=== PATIENT | female | born 1985 | race Caucasian/White ===

== ENCOUNTER 2017-01-07 05:47 | Inpatient (IN) | payer OTHER ==
[~2017-01-07] VITALS: Ht 162.6 cm; Wt 102.1 kg
[2017-01-07] MEDS ORDERED: LACTATED RINGERS 1,000 ML IV SCH (07:36)
[2017-01-07] MEDS ORDERED: BRETHINE2.5 MG PO (07:39)
[2017-01-07] MEDS ORDERED: PRENATAL LOW IR1 TA1 PO (07:39)
[2017-01-07] MEDS ORDERED: CITRIC ACID/SODIUM CITRATE 30 ML UDC PO SCH (07:40)
[2017-01-07 07:55] VITALS: BP 115/57
--- NOTE | 2017-01-07 08:29 | NUR ---
PATIENT HAS BEEN SCREENED AND CATEGORIZED LOW NUTRITION RISK. PATIENT WILL BE SEEN WITHIN 7 DAYS OF ADMISSION. 01/13/[address]
[2017-01-07] MEDS ORDERED: OXYTOCIN 10 UNITS/ML VIAL ONE ×2 (10:17→11:11)
[2017-01-07] MEDS ORDERED: MORPHINE PRES FREE 10 MG/10 ML AMP IV ONE (11:04)
[2017-01-07] MEDS ORDERED: ONDANSETRON 4 MG/2 ML VIAL ONE (11:11)
[2017-01-07] MEDS ORDERED: KETOROLAC 30 MG/ML VIAL ONE (11:11)
[2017-01-07] MEDS ORDERED: BUPIVACAINE-MPF 0.75% 10 ML VIAL INJ ONE (11:11)
[2017-01-07] MEDS ORDERED: PROPOFOL 200 MG/20 ML VIAL IV ONE (11:11)
[2017-01-07] MEDS ORDERED: OXYTOCIN 20 UNITS/LR PREMIX 1,000 ML IV SCH (11:35)
[2017-01-07] MEDS ORDERED: ONDANSETRON 4 MG/2 ML VIAL IVP PRN (11:35)
[2017-01-07] MEDS ORDERED: KETOROLAC 30 MG/ML VIAL IVP PRN ×2 (11:35→14:15)
[2017-01-07] MEDS ORDERED: NALOXONE 0.4 MG/ML VIAL IVP PRN ×2 (11:35)
[2017-01-07] MEDS ORDERED: diphenhydrAMINE 50 MG/ML VIAL IVP PRN (11:35)
[2017-01-07] MEDS ORDERED: diphenhydrAMINE 50 MG/ML VIAL ONE (13:49)
[2017-01-07] MEDS ORDERED: OXYTOCIN 20 UNITS/LR PREMIX 1,000 ML IV ONE (13:59)
[2017-01-07] MEDS ORDERED: MEASLES, MUMPS, AND RUBELLA 1 VIAL SQVAC PRN (14:15)
[2017-01-07] MEDS: OXYTOCIN 20 UNITS/LR PREMIX 1,000 ML IV SCH (19:37)
[2017-01-07] MEDS ORDERED: INFLUENZA VIRUS VACCINE QUAD 0.5 ML SYR IMVAC SCH (22:00)
[2017-01-08] MEDS: OXYTOCIN 20 UNITS/LR PREMIX 1,000 ML IV SCH (03:02)
[2017-01-08] MEDS ORDERED: HYDROmorphone 1 MG/ML AMP IVP PRN (06:00)
[2017-01-09] MEDS: IBUPROFEN 600 MG TAB PO PRN (03:13)
[2017-01-09] MEDS ORDERED: SODIUM PHOSPHATE 118 ML ENEM RC PRN (08:00)
[2017-01-09] MEDS: BISACODYL 5 MG TABEC PO PRN (08:25)
[2017-01-09] MEDS: DOCUSATE SODIUM 100 MG GELCAP PO PRN (08:25)
[2017-01-09] MEDS: oxyCODONE/APAP 5/325 MG 1 TAB TAB PO PRN (21:30)
[2017-01-10] MEDS: BISACODYL 5 MG TABEC PO PRN (20:53)
[2017-01-10] MEDS: DOCUSATE SODIUM 100 MG GELCAP PO PRN (20:53)
[2017-01-10] MEDS: oxyCODONE/APAP 5/325 MG 1 TAB TAB PO PRN (20:54)
[2017-01-10] MEDS ORDERED: diphenhydrAMINE 50 MG CAP PO SCH (21:05)
[2017-01-11] MEDS: IBUPROFEN 600 MG TAB PO PRN (04:05)
[2017-01-11] MEDS: oxyCODONE/APAP 5/325 MG 1 TAB TAB PO PRN (06:37)
[2017-01-11] MEDS ORDERED: MOTRIN400 MG PO ×2 (14:08→14:10)
[2017-01-11] MEDS ORDERED: FERROUS SULFAT325 MG PO (14:09)
== END 2017-01-11 15:45 | disposition home or self-care (01) | DRG 540 ==
LOC: MLD 07:03 → MFCC 10:50
PROVIDERS: ADMIT Obstetrics & Gynecology; ATTEND Obstetrics & Gynecology
PROC: 10D00Z1 Extraction of Products of Conception, Low, Open Approach (ICD-10-PCS; principal; 2017-01-10)
PROC: 0KNL0ZZ Release Left Abdomen Muscle, Open Approach (ICD-10-PCS; 2017-01-10)
PROC: 0KNK0ZZ Release Right Abdomen Muscle, Open Approach (ICD-10-PCS; 2017-01-10)
PROC: 0DNS0ZZ (ICD-10-PCS; 2017-01-10)
DX: O34.211 Maternal care for low transverse scar from previous cesarean delivery (principal); E66.01 Morbid (severe) obesity due to excess calories; O99.214 Obesity complicating childbirth; O99.89 Other specified diseases and conditions complicating pregnancy, childbirth and the puerperium; N73.6 Female pelvic peritoneal adhesions (postinfective); O24.425 Gestational diabetes mellitus in childbirth, controlled by oral hypoglycemic drugs; O99.72 Diseases of the skin and subcutaneous tissue complicating childbirth; B95.8 Unspecified staphylococcus as the cause of diseases classified elsewhere; L08.9 Local infection of the skin and subcutaneous tissue, unspecified; Z83.3 Family history of diabetes mellitus; Z3A.38 38 weeks gestation of pregnancy; Z68.38 Body mass index [BMI] 38.0-38.9, adult; Z37.0 Single live birth; Z28.21 Immunization not carried out because of patient refusal

== ENCOUNTER 2020-06-16 09:48 | Observation (INO) | payer OTHER, SELFPAY ==
[~2020-06-16] VITALS: Ht 157.5 cm; Wt 99.8 kg
[~2020-06-16 09:48] MED LIST: FERR325E14 PO; IBUP-1842 PO; PREN-380 PO
[2020-06-16 10:31] VITALS: BP 112/55
== END 2020-06-16 18:10 | disposition home or self-care (01) ==
LOC: MFCC 09:48
PROVIDERS: ADMIT Obstetrics & Gynecology; ATTEND Obstetrics & Gynecology
DX: Z03.818 Encounter for observation for suspected exposure to other biological agents ruled out (principal); O62.9 Abnormality of forces of labor, unspecified; O09.523 Supervision of elderly multigravida, third trimester; Z3A.34 34 weeks gestation of pregnancy
CPT/HCPCS: 76815; 81000; G0378; Q0092; U0003; 59025

== ENCOUNTER 2020-07-13 07:56 | Inpatient (IN) | payer OTHER, SELFPAY ==
[~2020-07-13] VITALS: Ht 154.9 cm; Wt 102.1 kg
[2020-07-13] MEDS: LACTATED RINGERS 1,000 ML IV SCH (06:18)
[~2020-07-13 07:56] MED LIST changes: +PREN-546 PO
[2020-07-13] MEDS ORDERED: TERBUTALINE 1 MG/ML VIAL SUBQ SCH (08:35)
[2020-07-13 08:37] VITALS: BP 122/66
[2020-07-13] MEDS ORDERED: TERBUTALINE 1 MG/ML VIAL SUBQ ONE ×2 (08:45→10:15)
[2020-07-13] MEDS ORDERED: LACTATED RINGERS 1,000 ML IV SCH (13:36)
[2020-07-13] MEDS ORDERED: TERBUTALINE 2.5 MG TAB ONE (14:09)
[2020-07-13 14:15] LABS: BASOPHILS # (AUTO) 0.1 K/uL (0.00-0.22); EOSINOPHILS % (AUTO) 0.1 % (0.0-4.0); HEMATOCRIT 36.2 % (36-48); LYMPHOCYTES # (AUTO) 1.6 K/uL (2.5-16.5); LYMPHOCYTES % (AUTO) 15.6 % (20.5-51.1); MEAN CORPUSCULAR HEMOGLOBIN 29 pg (27-31); MEAN CORPUSCULAR HGB CONC 33 g/dL (33-37); MEAN CORPUSCULAR VOLUME 86.4 fL (80-94); MONOCYTES # (AUTO) 0.5 K/uL (0.8-1.0); MONOCYTES % (AUTO) 4.7 % (1.7-9.3); NEUTROPHILS # (AUTO) 8.3 K/uL (1.8-7.7); NEUTROPHILS % (AUTO) 78.6 % (42.2-75.2); PLATELET COUNT (AUTO) 179 K/uL (140-450); RED BLOOD CELL COUNT(AUTO) 4.19 MIL/uL (4.20-5.40); WHITE BLOOD COUNT (AUTO) 10.5 K/uL (4.8-10.8)
[2020-07-13] MEDS: TERBUTALINE 2.5 MG TAB PO SCH (14:15)
[2020-07-13 14:43] LABS: ALBUMIN 2.2 g/dL (3.4-5.0); ANION GAP 19.6 (8-16); POTASSIUM 3.6 mmol/L (3.5-5.1); TOTAL BILIRUBIN 0.3 mg/dL (0.0-1.0)
[2020-07-14] MEDS: TERBUTALINE 2.5 MG TAB PO SCH (02:00)
[2020-07-14] MEDS: LACTATED RINGERS 1,000 ML IV SCH (07:18)
[2020-07-14] MEDS ORDERED: CITRIC ACID/SODIUM CITRATE 30 ML UDC PO SCH (08:30)
--- NOTE | 2020-07-14 09:34 | NUR ---
PATIENT HAS BEEN SCREENED AND CATEGORIZED LOW NUTRITION RISK. PATIENT WILL BE SEEN WITHIN 7 DAYS OF ADMISSION. 07/20/20 CLARIBEL HORNER MBA, RD
[2020-07-14] MEDS ORDERED: HYDROmorphone PFS 2 MG/ML SYR ONE (09:58)
[2020-07-14] MEDS ORDERED: KETAMINE 500 MG/5 ML VIAL ONE ×3 (09:58→13:02)
[2020-07-14] MEDS ORDERED: MORPHINE PRES FREE 10 MG/10 ML AMP IV ONE (09:59)
[2020-07-14] MEDS ORDERED: MIDAZOLAM 2 MG/2 ML VIAL ONE (10:00)
[2020-07-14] MEDS ORDERED: PHENYLEPHRINE 10 MG/ML VIAL ONE (10:27)
[2020-07-14] MEDS ORDERED: METOCLOPRAMIDE 10 MG/2 ML INJ VIAL ONE (10:27)
[2020-07-14] MEDS ORDERED: ONDANSETRON 4 MG/2 ML VIAL ONE (10:27)
[2020-07-14] MEDS ORDERED: ePHEDrine 50 MG/ML VIAL ONE (10:27)
[2020-07-14] MEDS ORDERED: PROPOFOL 200 MG/20 ML VIAL IV ONE (10:27)
[2020-07-14] MEDS ORDERED: DEXAMETHASONE 4 MG/ML VIAL ONE (10:27)
[2020-07-14] MEDS ORDERED: CALCIUM CHLORIDE 10% 1000 MG/10 ML VIAL IV SCH (12:15)
[2020-07-14] MEDS ORDERED: OXYTOCIN 20 UNITS in LACTATED RINGERS 1,000 ML IV SCH ×2 (12:36→16:03)
[2020-07-14] MEDS ORDERED: diphenhydrAMINE 50 MG/ML VIAL IVP PRN (12:40)
[2020-07-14] MEDS ORDERED: ONDANSETRON 4 MG/2 ML VIAL IVP PRN (12:40)
[2020-07-14] MEDS ORDERED: KETOROLAC 30 MG/ML VIAL IVP PRN (12:40)
[2020-07-14] MEDS ORDERED: NALOXONE 0.4 MG/ML VIAL IVP PRN ×2 (12:40)
[2020-07-14] MEDS ORDERED: OXYTOCIN 20 UNITS/LR PREMIX 1,000 ML IV ONE (15:20)
[2020-07-14] MEDS ORDERED: MEASLES, MUMPS, AND RUBELLA 1 VIAL SQVAC PRN (16:05)
[2020-07-14] MEDS ORDERED: HYDROmorphone 1 MG/ML AMP IVP PRN (16:05)
[2020-07-15] MEDS ORDERED: ceFAZolin 1,000 MG VIAL ONE (04:49)
[2020-07-15 08:49] LABS: BASOPHILS # (AUTO) 0.1 K/uL (0.00-0.22); BASOPHILS % (AUTO) 0.4 % (0.0-2.0); EOSINOPHILS # (AUTO) 0.1 K/uL (0-0.4); EOSINOPHILS % (AUTO) 0.4 % (0.0-4.0); HEMATOCRIT 23.4 % (36-48); HEMOGLOBIN 7.8 g/dL (12.0-16.0); LYMPHOCYTES # (AUTO) 2.4 K/uL (2.5-16.5); LYMPHOCYTES % (AUTO) 13.1 % (20.5-51.1); MEAN CORPUSCULAR HEMOGLOBIN 29 pg (27-31); MEAN CORPUSCULAR HGB CONC 33 g/dL (33-37); MEAN CORPUSCULAR VOLUME 85.9 fL (80-94); MONOCYTES # (AUTO) 1.1 K/uL (0.8-1.0); MONOCYTES % (AUTO) 5.9 % (1.7-9.3); NEUTROPHILS # (AUTO) 14.7 K/uL (1.8-7.7); NEUTROPHILS % (AUTO) 80.2 % (42.2-75.2); PLATELET COUNT (AUTO) 187 K/uL (140-450); RED BLOOD CELL COUNT(AUTO) 2.72 MIL/uL (4.20-5.40); RED CELL DISTRIBUTION WIDTH 14.3 % (11.6-13.7); WHITE BLOOD COUNT (AUTO) 18.3 K/uL (4.8-10.8)
[2020-07-15] MEDS: KETOROLAC 30 MG/ML VIAL IVP PRN (17:49)
[2020-07-15] MEDS ORDERED: ACETAMINOPHEN 325 MG TAB PO PRN (22:00)
[2020-07-16] MEDS: KETOROLAC 30 MG/ML VIAL IVP PRN (00:21)
[2020-07-16] MEDS ORDERED: IBUPROFEN 600 MG TAB PO PRN (09:00)
[2020-07-16] MEDS: SIMETHICONE 80 MG TAB.CHEW PO SCH ×3 (09:58→18:30)
[2020-07-16] MEDS: DOCUSATE SODIUM 100 MG GELCAP PO SCH (09:58)
[2020-07-16] MEDS: bisacodyL 5 MG TABEC PO SCH (09:58)
[2020-07-16] MEDS: SODIUM PHOSPHATE 118 ML ENEM RC PRN (16:26)
[2020-07-17] MEDS: DOCUSATE SODIUM 100 MG GELCAP PO SCH (09:05)
[2020-07-17] MEDS: bisacodyL 5 MG TABEC PO SCH (09:07)
[2020-07-17] MEDS: SIMETHICONE 80 MG TAB.CHEW PO SCH (09:08)
[2020-07-17] MEDS: SODIUM PHOSPHATE 118 ML ENEM RC PRN (11:37)
[2020-07-18] MEDS: SIMETHICONE 80 MG TAB.CHEW PO SCH (09:14)
[2020-07-18] MEDS: bisacodyL 5 MG TABEC PO SCH (09:14)
[2020-07-18] MEDS: DOCUSATE SODIUM 100 MG GELCAP PO SCH (09:14)
[2020-07-18 10:32] LABS: BASOPHILS # (AUTO) 0.1 K/uL (0.00-0.22); BASOPHILS % (AUTO) 0.4 % (0.0-2.0); EOSINOPHILS # (AUTO) 0.3 K/uL (0-0.4); EOSINOPHILS % (AUTO) 2.2 % (0.0-4.0); HEMATOCRIT 23.6 % (36-48); HEMOGLOBIN 7.8 g/dL (12.0-16.0); LYMPHOCYTES # (AUTO) 2.1 K/uL (2.5-16.5); LYMPHOCYTES % (AUTO) 17.6 % (20.5-51.1); MEAN CORPUSCULAR HEMOGLOBIN 29 pg (27-31); MEAN CORPUSCULAR HGB CONC 33 g/dL (33-37); MEAN CORPUSCULAR VOLUME 88.1 fL (80-94); MONOCYTES # (AUTO) 0.8 K/uL (0.8-1.0); MONOCYTES % (AUTO) 6.6 % (1.7-9.3); NEUTROPHILS # (AUTO) 8.8 K/uL (1.8-7.7); NEUTROPHILS % (AUTO) 73.2 % (42.2-75.2); PLATELET COUNT (AUTO) 278 K/uL (140-450); RED BLOOD CELL COUNT(AUTO) 2.68 MIL/uL (4.20-5.40); RED CELL DISTRIBUTION WIDTH 14.9 % (11.6-13.7)
== END 2020-07-18 14:40 | disposition home or self-care (01) | DRG 540 ==
LOC: MLD 07:56 → OBSVTOIN 13:56 → MFCC 07-14 16:00
PROVIDERS: ADMIT Obstetrics & Gynecology; ATTEND Obstetrics & Gynecology
PROC: 0UB70ZZ Excision of Bilateral Fallopian Tubes, Open Approach (ICD-10-PCS; 2020-07-14)
PROC: 3E0234Z Introduction of Serum, Toxoid and Vaccine into Muscle, Percutaneous Approach (ICD-10-PCS; 2020-07-14)
PROC: 3E0134Z Introduction of Serum, Toxoid and Vaccine into Subcutaneous Tissue, Percutaneous Approach (ICD-10-PCS; 2020-07-14)
PROC: 0DNU0ZZ Release Omentum, Open Approach (ICD-10-PCS; 2020-07-14)
PROC: 10D00Z1 Extraction of Products of Conception, Low, Open Approach (ICD-10-PCS; principal; 2020-07-14 10:30)
DX: O99.89 Other specified diseases and conditions complicating pregnancy, childbirth and the puerperium (principal); O36.63X0 Maternal care for excessive fetal growth, third trimester, not applicable or unspecified; O34.211 Maternal care for low transverse scar from previous cesarean delivery; N73.6 Female pelvic peritoneal adhesions (postinfective); Z20.828 Contact with and (suspected) exposure to other viral communicable diseases; Z3A.00 Weeks of gestation of pregnancy not specified; Z37.0 Single live birth; Z30.2 Encounter for sterilization; Z23 Encounter for immunization; D62 Acute posthemorrhagic anemia
CPT/HCPCS: G0378 ×6; 36415; 51702; 76805; 80053; 85025; 86592; 86886; 86900; 86901; 87086; 88302; 88304; 90715; J0690; J1100; J1170; J1200; J1885; J2250; J2270; J2370; J2405; J2590; J2704; J2765; J3105; J3490; J7060; J7120; Q0092